=== PATIENT | female | born 1990 | race Caucasian/White ===

== ENCOUNTER 2019-03-17 23:32 | Emergency (ER) | payer MEDICAID ==
[~2019-03-17] VITALS: Ht 157.5 cm; Wt 65.8 kg
--- NOTE | 2019-03-18 00:13 | NUR ---
AT THE BED SIDE
[2019-03-18] MEDS ORDERED: IBUPROFEN 600 MG TABLET PO ONE (00:17)
[2019-03-18] MEDS: IBUPROFEN 600 MG TABLET PO ONE (00:20)
--- NOTE | 2019-03-18 01:10 | NUR ---
RESTING IN BED AWAKE AND ALERT. RPORTED FEELING BETTER, NO SOB. FAMILY AT THE BED SIDE, VSS. WILL CONT TO MONITOR ,
--- NOTE | 2019-03-18 01:39 | NUR ---
Patient discharged to home in stable condition. RX AND Written and verbal after care instructions given. Patient verbalizes understanding of instruction.
[2019-03-18 01:48] VITALS: BP 120/73
== END 2019-03-18 01:40 | disposition home or self-care (01) ==
LOC: ER 23:40
DX: M94.0 Chondrocostal junction syndrome [Tietze] (principal); Z98.890 Other specified postprocedural states
CPT/HCPCS: 71045-TC